=== PATIENT | male | born 1975 | race Two or more races ===

== ENCOUNTER 2018-12-17 11:05 | Outpatient (CLI) | payer OTHER | END 2018-12-17 11:14 | disposition home or self-care (01) | LOC: RAD 11:05 | DX: Z01.811 Encounter for preprocedural respiratory examination (principal) ==

== ENCOUNTER → 2018-12-23 | Outpatient (CLI) | payer OTHER | END | disposition home or self-care (01) | LOC: EKG 09:01 | DX: I49.8 Other specified cardiac arrhythmias (principal) ==